=== PATIENT | female | born 1975 | race Two or more races ===

== ENCOUNTER 2017-06-13 04:52 | Inpatient (IN) | payer BC ==
[2017-06-12 11:42] VITALS: BMI 22.2
[~2017-06-13 04:52] MED LIST: ceFAZolin SODIUM 1 GM VIAL IVPB ONE
[2017-06-13] MEDS ORDERED: ceFAZolin 2 GRAM PREMIX BAG IVPB ONE (11:30)
[2017-06-13] MEDS ORDERED: ROPIVACAINE HCL 0.5% 30ML VIAL ONE (12:09)
[2017-06-13] MEDS ORDERED: MIDAZOLAM HCL 2 MG/2 ML SINGLE DOSE VIAL ONE ×2 (12:10)
--- NOTE | 2017-06-13 13:07 | HP ---
Past Medical History - Primary Care Physician PCP:: Aleksander Hadley - Admission Chief Complaint: chronic pelvic pain, menometrorrhagia History of Present Illness: 41 yo f with hx of chronic pelvic pain . menometrorrhagia, dysparunia , multiple abdomainal surgery for ovarian cyst , endometriois . requesting to have hysterectomy, kem discussed History Source: Patient Limitations to Obtaining History: No Limitations - Past Medical History ...: 2 ...Para: 2 - Past Surgical History Past Surgical History: Yes: Appendectomy, , Cystectomy (ovarian cystectomy) Hx Myomectomy: No Hx Transabdominal Cerclage: No - Smoking History Smoking history: Never smoked - Alcohol/Substance Use Hx Alcohol Use: Yes (OCCAS) - Social History Usual Living Arrangement: Yes: With Spouse History of Recent Travel: No Home Medications - Allergies Allergies/Adverse Reactions: Allergies Allergy/AdvReac Type Severity Reaction Status Date / Time No Known Allergies Allergy Verified 06/12/17 11:43 - Home Medications Home Medications: Ambulatory Orders Multivitamin [One Daily] 1 each PO DAILY 06/12/17 Review of Systems - Review of Systems Constitutional: reports: No Symptoms Eyes: reports: No Symptoms HENT: reports: No Symptoms Neck: reports: No Symptoms Cardiovascular: reports: No Symptoms Respiratory: reports: No Symptoms Gastrointestinal: reports: Abdominal Pain, Bloating Genitourinary: reports: Frequency, Pain, Vaginal Bleeding Breasts: reports: No Symptoms Reported Musculoskeletal: reports: Back Pain Integumentary: reports: No Symptoms Neurological: reports: No Symptoms Endocrine: reports: No Symptoms Hematology/Lymphatic: reports: No Symptoms Psychiatric: reports: No Symptoms 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 Signs: Vital Signs Temperature 98.0 F 06/13/17 12:01 Pulse Rate 70 06/13/17 12:01 Respiratory Rate 20 06/13/17 12:01 Blood Pressure 123/75 06/13/17 12:01 O2 Sat by Pulse Oximetry (%) 98 06/13/17 12:01 Constitutional: Yes: Well Nourished, No Distress, Calm Eyes: Yes: WNL, Conjunctiva Clear, EOM Intact HENT: Yes: WNL, Atraumatic, Normocephalic Neck: Yes: WNL, Supple, Trachea Midline Cardiovascular: Yes: WNL, Regular Rate and Rhythm Respiratory: Yes: WNL, Regular, CTA Bilaterally Gastrointestinal: Yes: WNL ...Rectal Exam: Yes: WNL Renal/: Yes: WNL External Genitalia: Yes: Normal Internal Exam Deferred: No Vaginal Exam: Yes: Normal Cervix: Yes: Normal Uterus: Yes: Enlarged, Tender Adnexa: Tender: Left, Right Breast(s): Yes: WNL Musculoskeletal: Yes: WNL Extremities: Yes: WNL Integumentary: Yes: WNL Neurological: Yes: WNL, Alert, Oriented ...Motor Strength: WNL Psychiatric: Yes: WNL, Alert, Oriented Problem List - Problem (1) Chronic pelvic pain in female Code(s): R10.2 - PELVIC AND PERINEAL PAIN; G89.29 - OTHER CHRONIC PAIN (2) Adenomyosis Code(s): N80.0 - ENDOMETRIOSIS OF UTERUS (3) Endometriosis Code(s): N80.9 - ENDOMETRIOSIS, UNSPECIFIED Assessment/Plan abdominal hysterectomy, BSO, rba discussed
[2017-06-13] MEDS ORDERED: SCOPOLAMINE HYDROBROMIDE 1 PATCH PATCH.TD72 ONE (13:10)
[2017-06-13] MEDS ORDERED: ROCURONIUM BROMIDE 50 MG/5 ML VIAL ONE (13:54)
[2017-06-13] MEDS ORDERED: LIDOCAINE HCL/PF 2% SDV 5ML VIAL ONE (13:54)
[2017-06-13] MEDS ORDERED: PROPOFOL 20 ML ONE (13:54)
[2017-06-13] MEDS ORDERED: ceFAZolin SODIUM 1 GM VIAL IVPB ONE (13:55)
[2017-06-13] MEDS ORDERED: ceFAZolin SODIUM 1 GM VIAL ONE (14:12)
[2017-06-13] MEDS ORDERED: DEXAMETHASONE SOD PHOSPHATE 4 MG/1 ML VIAL ONE (14:36)
[2017-06-13] MEDS ORDERED: NEOSTIGMINE METHYLSULFATE 0.5 MG/ML - 10 ML MDV ONE (14:41)
[2017-06-13] MEDS ORDERED: ONDANSETRON 4 MG/2 ML VIAL IVPUSH PRN (16:17)
[2017-06-13] MEDS ORDERED: oxyCODONE HCL 5 MG TABLET PO PRN (16:17)
[2017-06-13] MEDS ORDERED: IBUPROFEN 800 MG/8 ML IJ IVPB PRN ×2 (16:17)
[2017-06-13] MEDS ORDERED: HYDROmorphone *PCA* 6MG/30ML DISP.SYRIN PCA ONE (16:19)
[2017-06-13] MEDS ORDERED: HYDROmorphone *PCA* 10MG/50ML DISP.SYRIN PCA SCH (16:30)
[2017-06-13] MEDS ORDERED: LACTATED RINGERS SOLUTION 1,000 ML IV SCH (16:30)
[2017-06-13] MEDS ORDERED: ONDANSETRON 4 MG/2 ML VIAL ONE (17:15)
[2017-06-13] MEDS: ONDANSETRON 4 MG/2 ML VIAL IVPUSH PRN (17:15)
[2017-06-13] MEDS: ELECTROLYTE-148 SOLN 1,000 ML IV SCH (17:50)
[2017-06-13] MEDS ORDERED: CEFAZOLIN 1 GM PUSH 1 GM/10 ML DISP.SYRIN IVPUSH SCH (18:00)
[2017-06-13] MEDS ORDERED: HYDROmorphone *PCA* 6MG/30ML DISP.SYRIN PCA SCH (22:15)
[2017-06-13] MEDS: CEFAZOLIN 1 GM PUSH 1 GM/10 ML DISP.SYRIN IVPUSH SCH (23:55)
[2017-06-14] MEDS ORDERED: diphenhydrAMINE HCL 25 MG CAPSULE (FP) PO ONE (01:30)
[2017-06-14] MEDS: CEFAZOLIN 1 GM PUSH 1 GM/10 ML DISP.SYRIN IVPUSH SCH ×2 (06:33→13:49)
[2017-06-14] MEDS: ONDANSETRON 4 MG/2 ML VIAL IVPUSH PRN ×2 (06:44→17:02)
[2017-06-14] MEDS: ELECTROLYTE-148 SOLN 1,000 ML IV SCH ×2 (08:25→16:41)
[2017-06-14 08:52] LABS: HEMATOCRIT 31.5 % (32.4-45.2); HEMOGLOBIN 10.4 GM/dL (10.7-15.3); MCH 29.8 pg (25.7-33.7); MCHC 32.9 g/dl (32.0-36.0); MEAN CELL VOLUME 90.6 fl (80-96); MEAN PLT VOLUME 10.3 fl (7.5-11.1); PLATELET COUNT 146 K/MM3 (134-434); RBC 3.48 M/mm3 (3.60-5.2); RDW 13.3 % (11.6-15.6); WHITE BLOOD COUNT 10.6 K/mm3 (4.0-10.0)
[2017-06-14] MEDS ORDERED: SIMETHICONE 80 MG TAB.CHEW (FP) PO PRN (09:27)
[2017-06-14] MEDS ORDERED: BISACODYL 5 MG TABLET.DR (FP) PO PRN (09:28)
[2017-06-14 09:30] LABS: ANION GAP 8 (8-16); BLOOD UREA NITROGEN 7 mg/dL (7-18); CHLORIDE 103 mmol/L (98-107); CO2 27 mmol/L (21-32); CREATININE 0.5 mg/dL (0.55-1.02); GLUCOSE,RANDOM 84 mg/dL (74-106); POTASSIUM 3.8 mmol/L (3.5-5.1); SODIUM 138 mmol/L (136-145)
[2017-06-14] MEDS ORDERED: PANTOPRAZOLE 40 MG TABLET (FP) PO PRN (09:30)
[2017-06-14] MEDS: ENOXAPARIN NA (PORCINE) 40 MG/0.4 ML DISP.SYRIN SQ SCH (10:57)
[2017-06-14 11:57] LABS: CALCIUM 6.9 mg/dL (8.5-10.1)
[2017-06-14] MEDS ORDERED: HYDROmorphone HCL CARPU-JECT 4 MG/1 ML DISP.SYRIN IVPB PRN (12:54)
[2017-06-14] MEDS: oxyCODONE HCL 5 MG TABLET PO PRN ×2 (16:42→21:53)
[2017-06-14] MEDS: CALCIUM 500MG/VIT-D 200 UNITS COMBO TABLET (FP) PO SCH (21:54)
[2017-06-15] MEDS: IBUPROFEN 600 MG TABLET (FP) PO PRN ×2 (02:18→21:01)
[2017-06-15 08:09] LABS: ANION GAP 6 (8-16); BLOOD UREA NITROGEN 6 mg/dL (7-18); CALCIUM 7.9 mg/dL (8.5-10.1); CHLORIDE 102 mmol/L (98-107); CO2 32 mmol/L (21-32); CREATININE 0.4 mg/dL (0.55-1.02); GLUCOSE,RANDOM 94 mg/dL (74-106); SODIUM 140 mmol/L (136-145)
[2017-06-15] MEDS: oxyCODONE HCL 5 MG TABLET PO PRN ×2 (09:42→17:38)
[2017-06-15] MEDS: CALCIUM 500MG/VIT-D 200 UNITS COMBO TABLET (FP) PO SCH ×2 (09:42→21:00)
[2017-06-15] MEDS: ENOXAPARIN NA (PORCINE) 40 MG/0.4 ML DISP.SYRIN SQ SCH (09:43)
--- NOTE | 2017-06-15 12:20 | PN ---
Progress Note (short form) - Note Progress Note: pod 2 c/o of gas pain and low abdominal pain, not passing gas CBC, BMP 06/14/17 07:00 06/15/17 06:45 Last Vital Signs Temp Pulse Resp BP Pulse Ox 98.3 F 79 18 121/72 99 06/15/17 07:45 06/15/17 07:45 06/15/17 07:45 06/15/17 07:45 06/13/17 21:00 abdomen soft, mild distension, no cva , BS present but decreased incision dry, clean no calf tenderness no vaginal bleeding pod 2 mild post op illius plan observe, dulcolax, ambulate if passes gas will d/c home in am Problem List - Problems (1) Chronic pelvic pain in female Code(s): R10.2 - PELVIC AND PERINEAL PAIN; G89.29 - OTHER CHRONIC PAIN (2) Adenomyosis Code(s): N80.0 - ENDOMETRIOSIS OF UTERUS (3) Endometriosis Code(s): N80.9 - ENDOMETRIOSIS, UNSPECIFIED
[2017-06-16] MEDS: ONDANSETRON 4 MG/2 ML VIAL IVPUSH PRN (01:21)
--- NOTE | 2017-06-16 08:53 | PN ---
Progress Note (short form) - Note Progress Note: pod 3 doing well, passing gas , no BM CBC, BMP 06/14/17 07:00 06/15/17 06:45 Last Vital Signs Temp Pulse Resp BP Pulse Ox 98.1 F 73 18 110/57 99 06/16/17 06:00 06/16/17 06:00 06/16/17 06:00 06/16/17 06:00 06/15/17 21:00 abdomen soft , less distension, , BS present, no cva incision dry, clean no calf tenderness impression resolves post op ileus plan d/c home with instuction, follow up office 2 weeks Problem List - Problems (1) Chronic pelvic pain in female Code(s): R10.2 - PELVIC AND PERINEAL PAIN; G89.29 - OTHER CHRONIC PAIN (2) Adenomyosis Code(s): N80.0 - ENDOMETRIOSIS OF UTERUS (3) Endometriosis Code(s): N80.9 - ENDOMETRIOSIS, UNSPECIFIED
--- NOTE | 2017-06-16 08:54 | DS ---
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: Vital Signs Temperature 98.1 F 06/16/17 06:00 Pulse Rate 73 06/16/17 06:00 Respiratory Rate 18 06/16/17 06:00 Blood Pressure 110/57 06/16/17 06:00 O2 Sat by Pulse Oximetry (%) 99 06/15/17 21:00 Constitutional: Yes: Well Nourished, No Distress, Calm Eyes: Yes: WNL, Conjunctiva Clear, EOM Intact HENT: Yes: WNL, Atraumatic, Normocephalic Neck: Yes: WNL, Supple, Trachea Midline Cardiovascular: Yes: WNL, Regular Rate and Rhythm Respiratory: Yes: WNL, Regular, CTA Bilaterally Gastrointestinal: Yes: WNL ...Rectal Exam: Yes: WNL Renal/: Yes: WNL Breast(s): Yes: WNL Musculoskeletal: Yes: WNL Extremities: Yes: WNL Integumentary: Yes: WNL Wound/Incision: Yes: Clean/Dry, Well Approximated, Sutures Intact Neurological: Yes: WNL, Alert, Oriented ...Motor Strength: WNL Psychiatric: Yes: WNL, Alert, Oriented Labs: CBC, BMP 06/14/17 07:00 06/15/17 06:45 Discharge Summary Reason For Visit: HYDROSALPINX Current Active Problems Adenomyosis (Acute) Chronic pelvic pain in female (Acute) Endometriosis (Acute) Procedures: Principal: jaki , bso, lysis of pelvic adhesions Condition: Good - Instructions Diet, Activity, Other Instructions: regular diet, follow up office 2 weeks if pain, fever , call MD Referrals: Aleksander Hadley MD [Staff Physician] - Disposition: HOME - Home Medications Comprehensive Discharge Medication List: Ambulatory Orders Multivitamin [One Daily] 1 each PO DAILY 06/12/17 Ibuprofen [Motrin -] 600 mg PO QID #28 tablet 06/15/17 Oxycodone HCl/Acetaminophen [Percocet 5-325 mg Tablet] 1 - 2 tab PO Q4H PRN #20 tablet MDD 4 06/16/17
[2017-06-16] MEDS: ENOXAPARIN NA (PORCINE) 40 MG/0.4 ML DISP.SYRIN SQ SCH (11:17)
[2017-06-16] MEDS: CALCIUM 500MG/VIT-D 200 UNITS COMBO TABLET (FP) PO SCH (11:18)
[2017-06-16 11:55] VITALS: BP 108/60; PULSE 72; TEMP 98.2
--- NOTE | 2017-06-16 19:20 | OP ---
DATE OF OPERATION: 06/13/2017 PREOPERATIVE DIAGNOSES: Chronic pelvic pain, endometriosis. POSTOPERATIVE DIAGNOSES: Chronic pelvic pain, endometriosis, and pelvic adhesions. SURGEON: Aleksander Hadley MD SALES REPRESENTATIVE RAW FIBERS: Sherif Hutchinson MD PROCEDURE: Total abdominal hysterectomy, bilateral salpingo-oophorectomy with lysis of pelvic adhesions. ANESTHESIA: General. ANESTHESIOLOGIST: Jyoti Bingham MD ESTIMATED BLOOD LOSS: 100 mL DESCRIPTION OF PROCEDURE: Patient was taken to the operating room. Under adequate general anesthesia in dorsal supine position, a Pfannenstiel abdominal skin incision was made over the previous incision. Abdominal wall was cut layer by layer until peritoneum was exposed and incised. Upon entering the abdominal cavity, upper abdomen was checked, was normal. There were multiple pelvic adhesions. The uterus was adherent to the anterior abdominal wall and the fascia and both cornual regions of the uterus. The bladder was adherent to the uterus and covering the fundus of the uterus. Both ovaries were stuck to both pelvic sidewalls and to cul-de-sac area. There was evidence of multiple endometriosis implants. Then, the cornual regions of the uterus which were adherent to the rectus muscle, they were lysed meticulously with Metzenbaum scissors and cautery, and hemostasis was established. The bladder was adherent to the fundus of the uterus. These adhesions were lysed meticulously with Metzenbaum scissors, and bladder was released from the uterus and pushed down. Then, both round ligaments were identified, clamped with the LigaSure cautery, cauterized, and cut, and then, the anterior leaf of broad ligament was opened and bladder was further pushed down. The ovaries were adherent bilaterally to the pelvic sidewalls and cul-de-sac. The ovaries' adhesions were lysed with Metzenbaum scissors and released. There was evidence of multiple endometriotic implants on both ovaries and the uterosacral ligaments. After lysing the ovaries, then a hole was made in the broad ligament, and then, the infundibulopelvic ligament was identified, clamped bilaterally, cut, and the clamp replaced with first 0 Vicryl ties and then with 0 Vicryl suture. At this time, bladder was further pushed down. Uterine artery was identified, clamped bilaterally, cut, and the clamp replaced with 0 Vicryl suture bilaterally. Paracervical area was clamped with Eugenia clamp, cut, and the clamp replaced with 0 Vicryl suture bilaterally until the cervicovaginal junction was reached. At this time, the vaginal angles were grasped with Eugenia clamp, cut, and the clamp replaced with 0 Vicryl suture bilaterally. Then, the specimens removed below the cervix. The vaginal cuff was closed with interrupted suture of 0 Vicryl. Pelvic cavity several times irrigated. No active bleeding was seen. Then, all the lap pads, sponge, and instrument counts were correct. Peritoneum was closed with 0 Vicryl continuous suture, muscles were brought together with interrupted suture of 0 Vicryl, the fascia was closed with 0 Vicryl continuous suture, subcutaneous fat with interrupted suture of 3-0 Vicryl, and the skin was closed with 3-0 Vicryl subcuticular continuous suture. Patient tolerated the procedure well, left the OR in good condition. Roderick [id number]
--- NOTE | 2017-06-20 09:47 | PATH ---
Surgical Pathology Report Patient Name: MATT FOOTE [facility]. Rec. #: [id number] /Age/Gender: 1975 (Age: 41) / F Account: [id number] Location: [facility] MED/SURG Taken: 06/13/2017 Received: 06/16/2017 Reported: 06/20/2017 Physicians: Aleksander Hadley M.D. Specimen(s) Received A: OMENTUM ADHESION B: UTERUS, CERVIX, BILATERAL FALLOPIAN TUBES AND BILATERAL OVARIES Clinical History Pelvic pain, endometriosis, menorrhagia Final Diagnosis A. OMENTUM, ADHESIONS, EXCISION: OMENTAL ADIPOSE TISSUE WITH DENSE FIBROUS ADHESIONS. B. UTERUS, CERVIX, BILATERAL FALLOPIAN TUBES AND OVARIES, TOTAL ABDOMINAL HYSTERECTOMY WITH BILATERAL SALPINGO-OOPHORECTOMY: SECRETORY ENDOMETRIUM. UNREMARKABLE MYOMETRIUM. DENSE SEROSAL ADHESIONS. LEFT OVARY WITH SMALL ENDOMETRIOTIC CYST. LEFT FALLOPIAN TUBE WITH DENSE ADHESIONS AND ENDOMETRIOSIS. RIGHT OVARY WITH FOLLICULAR CYSTS AND HEMORRHAGIC CORPUS LUTEUM CYSTS. RIGHT FALLOPIAN TUBE WITH DENSE ADHESIONS. Electronically Signed Mimi Moralez M.D. Gross Description A. Received in formalin labeled "omentum adhesion," is an 8.3 x 5.8 x 0.7 cm portion of yellow, lobulated adipose tissue, consistent with a portion of omentum. Rubber Compounder Supervisor sections are submitted in 3 cassettes. B. Received in formalin labeled "uterus, cervix, bilateral fallopian tubes and bilateral ovaries," is a 129 g uterus with an attached cervix and bilateral attached adnexa. The specimen measures 10.5 cm from superior to inferior, 5.5 cm from left to right and 4.7 cm from anterior to posterior. The serosa is dove-toscano with abundant adhesions. The attached cervix measures 3.7 cm in length and averages 3 cm in diameter. The ectocervix is dove, smooth and glistening. The endocervix is unremarkable. The endometrial cavity measures 4 cm in length and 2.1 cm from cornu to cornu. The endometrium is dove-pink and averages 0.2 cm in thickness. The myometrium is dove and trabeculated, averaging 2.2 cm in thickness. No intramural nodules are identified. The left fimbriated fallopian tube measures 4.5 cm in length. The outer surface is chambers purple with dense adhesions. Sectioning of the fallopian tube reveals an unremarkable lumen. There is a 2.5 x 1.3 x 1.4 cm mass of adhesions surrounding the fallopian tube, possibly containing ovarian parenchyma. No definite normal ovarian parenchyma is identified. The right fimbriated fallopian tube measures 5 cm in length. The outer surface is chambers purple with dense adhesions. Sectioning reveals an unremarkable lumen. The right ovary measures 5.0 x 2.5 x 2.5 cm. The outer surface is dove-toscano with adhesions. Sectioning reveals multiple hemorrhagic corpora lutea measuring up to 2.0 cm in greatest dimension. There are additional smaller serous cysts identified, measuring up to 0.8 cm in greatest dimension. Rubber Compounder Supervisor sections are submitted in 17 cassettes as follows: 1-anterior cervix; 2-posterior cervix; 8-7-qbaeooik endomyometrium; 5-4-bbmhbwffq endomyometrium; 7-strips of serosal adhesions; 8-left fallopian tube fimbria; 9-cross sections of left fallopian tube; 13-03-jvyhwxe adhesions surrounding left fallopian tube possibly containing ovarian parenchyma; 12-right fallopian tube fimbria; 13-cross sections of right fallopian tube; 14-17-right ovary; 50-14-ulatwrhat of tissue surrounding left fallopian tube. 06/16/2017 [facility]06/16/[facility]
== END 2017-06-16 13:50 | disposition home or self-care (01) | DRG 743 ==
LOC: JSAMEDAYSX 04:52 → EDSTATUS 13:30 → J8W 18:30
PROVIDERS: ADMIT Obstetrics & Gynecology; ATTEND Obstetrics & Gynecology
PROC: 0DNW0ZZ Release Peritoneum, Open Approach (ICD-10-PCS; 2017-06-13)
PROC: 0UT70ZZ Resection of Bilateral Fallopian Tubes, Open Approach (ICD-10-PCS; 2017-06-13)
PROC: 0UT20ZZ Resection of Bilateral Ovaries, Open Approach (ICD-10-PCS; 2017-06-13)
PROC: 0UT90ZZ Resection of Uterus, Open Approach (ICD-10-PCS; principal; 2017-06-13 13:30)
DX: N80.0 Endometriosis of uterus (principal); R10.2 Pelvic and perineal pain; N92.1 Excessive and frequent menstruation with irregular cycle; N73.6 Female pelvic peritoneal adhesions (postinfective); N83.01 Follicular cyst of right ovary
CPT/HCPCS: 36415; 80048; 84703; 85027; 86850; 86900; 86901; 88305-TC; 88307-TC; 94760; J1170

== ENCOUNTER 2017-09-18 12:03 | Observation (INO) | payer BC ==
--- NOTE | 2017-09-18 12:11 | PDOC ---
History of Present Illness - General Stated Complaint: CHEST TIGHTNESS Time Seen by Provider: 09/18/17 12:10 - History of Present Illness Initial Comments: 41 year old previously healthy female with PMH Of recent hysterectomy and oophorectomy (currently on HRT) presenting with left arm numbness/tingling/ heaviness and chest pressure with general fatigue. States that these symptoms were sudden onset at 11:00 AM. Her symptoms co-presented with some nausea with right sided mild headache and she denies dysarthria, overt weakness, visual complaints or other symptoms. Her chest pressure is central non-radiating, non- exertional, and non-pleuritic. Her stroke scale was a 2 on presentation ( significant for left upper quadrant peripheral visual field deficit and sharp sensory deeficit in parts of her left arm and hand). Denies fevers, chills, vomiting, diarrhea, or other symptoms. HER PCP is Roberto Carlos Billingsley. 09/18/17 13:08 Past History - Past Medical History Allergies/Adverse Reactions: Allergies Allergy/AdvReac Type Severity Reaction Status Date / Time No Known Allergies Allergy Verified 09/18/17 13:29 Home Medications: Ambulatory Orders Estradiol 25 mg PO DAILY 09/18/17 Anemia: No Asthma: No Cancer: No Cardiac Disorders: No CVA: No COPD: No CHF: No Dementia: No Diabetes: No GI Disorders: No Disorders: No HTN: No Hypercholesterolemia: No Liver Disease: No Seizures: No Thyroid Disease: No - Surgical History Abdominal Surgery: Yes Appendectomy: Yes - Immunization History Immunization Up to Date: Yes - Suicide/Smoking/Psychosocial Hx Smoking History: Never smoked Hx Alcohol Use: No Drug/Substance Use Hx: No Substance Use Type: None Hx Substance Use Treatment: No Review of Systems - Review of Systems Constitutional: Yes: Weakness. No: Chills, Diaphoresis, Fever HEENTM: No: Blurred Vision, Tearing, Recent change in vision Respiratory: No: Cough, Orthopnea, Shortness of Breath, SOB with Exertion Cardiac (ROS): Yes: Chest Pain. No: Edema, Irregular Heart Rate ABD/GI: Yes: Nausea. No: Diarrhea, Vomiting : No: Burning, Dysuria, Discharge Integumentary: No: Lesions, Lumps, Pallor Neurological: Yes: Headache, Numbness, Paresthesia, Tingling, Weakness. No: Pre -Existing Deficit, Unsteady Gait, Ataxia, Dizziness Psychiatric: No: Anxiety, Depression *Physical Exam - Physical Exam General Appearance: Yes: Nourished, Appropriately Dressed. No: Apparent Distress HEENT: positive: EOMI, STU, Normal ENT Inspection, Normal Voice. negative: Symmetrical Neck: positive: Trachea midline, Normal Thyroid, Supple. negative: Tender, Rigid Respiratory/Chest: positive: Lungs Clear, Normal Breath Sounds. negative: Chest Tender, Respiratory Distress, Accessory Muscle Use Cardiovascular: positive: Regular Rhythm, Regular Rate Gastrointestinal/Abdominal: positive: Normal Bowel Sounds, Flat, Soft. negative : Tender Lymphatic: positive: Adenopathy. negative: Tenderness Musculoskeletal: positive: Normal Inspection. negative: CVA Tenderness Extremity: positive: Normal Capillary Refill, Normal Inspection, Normal Range of Motion, Pelvis Stable. negative: Tender Integumentary: positive: Normal Color, Dry, Warm Neurologic: positive: dramatic coach II-XII NML intact, Fully Oriented, Alert, Normal Mood/ Affect, Motor Strength 5/5, Sensory Deficit (left arm sensory deficit in C 6 distribution) ED Treatment Course - LABORATORY CBC & Chemistry Diagram: 09/18/17 12:39 09/18/17 12:39 Medical Decision Making - Medical Decision Making CT head negative and all labs WNL with exception of leuk esterase + UTI on her UA. Will admit under Sheila with echo/ MRI pending and Tiffany following. EKG unrevealing with old incomplete branch block. Aspirin, atorvastatin, and ceftriaxone given. 09/18/17 14:38 *DC/Admit/Observation/Transfer Diagnosis at time of Disposition: Stroke Qualifiers: CVA mechanism: unspecified Qualified Code(s): I63.9 - Cerebral infarction, unspecified - Discharge Dispostion Condition at time of disposition: Stable Decision to Admit order: Yes - Referrals Referrals: Roberto Carlos Billingsley MD [Primary Care Provider] - - Patient Instructions - Post Discharge Activity
[2017-09-18] MEDS ORDERED: ASPIRIN 81 MG CHEWABLE TABLETS PO ONE (12:56)
[2017-09-18] MEDS ORDERED: ATORVASTATIN CA 80 MG TABLET (FP) PO ONE (12:56)
[2017-09-18] MEDS ORDERED: ASPIRIN 325 MG TABLET ONE (12:58)
[2017-09-18] MEDS ORDERED: ATORVASTATIN CA 80 MG TABLET (FP) ONE (12:59)
[2017-09-18 13:01] LABS: BASO % 0.7 % (0-2.0); EOS % 1.4 % (0-4.5); HEMATOCRIT 36.5 % (32.4-45.2); LYMPH % 35.7 % (8-40); MCH 28.5 pg (25.7-33.7); MCHC 32.9 g/dl (32.0-36.0); MEAN CELL VOLUME 86.8 fl (80-96); MEAN PLT VOLUME 10.1 fl (7.5-11.1); MONO % 8.4 % (3.8-10.2); NEUT % 53.8 % (42.8-82.8); PLATELET COUNT 150 K/MM3 (134-434); RDW 14.6 % (11.6-15.6); WHITE BLOOD COUNT 6.2 K/mm3 (4.0-10.0)
[2017-09-18 13:18] LABS: ALBUMIN 3.6 g/dl (3.4-5.0); ANION GAP 4 (8-16); BILIRUBIN,TOTAL 0.3 mg/dL (0.2-1.0); BLOOD UREA NITROGEN 13 mg/dL (7-18); CALCIUM 8.7 mg/dL (8.5-10.1); CHLORIDE 104 mmol/L (98-107); CHOLESTEROL 209 mg/dL (50-200); CO2 32 mmol/L (21-32); CREATININE 0.6 mg/dL (0.55-1.02); GLUCOSE,RANDOM 87 mg/dL (74-106); POTASSIUM 4.9 mmol/L (3.5-5.1); SGOT/AST 30 U/L (15-37); SGPT/ALT 23 U/L (12-78); SODIUM 140 mmol/L (136-145); TRIGLYCERIDES 134 mg/dL (35-160)
[2017-09-18 13:19] LABS: ALK PHOS 63 U/L (45-117); HDL CHOLESTEROL 99 mg/dL (40-60)
--- NOTE | 2017-09-18 13:27 | PDOC ---
Attending Attestation - Resident Resident Name: Manish Valdes - ED Attending Attestation I have performed the following: I have examined & evaluated the patient, The case was reviewed & discussed with the resident, I agree w/resident's findings & plan - HPI HPI: 09/18/17 13:21 41y/o F h/o jaki/bso on estrogen p/w acute onset at 11am of generalized weakness , chest pressure, and L arm heaviness/numbness. no LOC, no vision/voice deficit or focal weakness/paralysis. no sob/palpitations. no h/o migraines. - Physicial Exam PE: 09/18/17 13:27 vss, afebrile alert and well appearing seated up in stretcher no facial asymmetry or paralysis. speech clear, neck supple s1s2 rrr, ctab, abd benign 5/5 motor x4, no drift, ? sensory decreased LUE, otherwise nvi - Critical Care Time Total Critical Care Time: 40 Critical Care Statement: The care of this patient involved high complexity decision making to prevent further life threatening deterioration of the patient 's condition and/or to evaluate & treat vital organ system(s) failure or risk of failure. - Medical Decision Making 09/18/17 13:28 41y/o F with acute onset generalized weakness, ? L arm paresthesias, at 11am. code chambers activated 2/2 neuro sxs, ? hypercoagulable on estrogen, lower suspicion for cardiac etiology. stroke protocol initiated ct head without acute pathology. Discussed with Dr. Allen, no indication for tpa and will medically optimize labs, ua, ekg, cxr admission 09/18/17 14:00 labs nwl, UA notable for UTI. Will send cx, treat with abx. Heart Score/ECG Review #1 ECG reviewed & interpreted by me at: 12:16 General ECG Interpretation: Sinus Rhythm, Normal Rate (57), Normal Intervals ( IRBBB,), No acute ischemic changes
[2017-09-18 13:32] LABS: INR 0.97 (0.82-1.09)
[2017-09-18 13:34] LABS: URINE APPEARANCE SLCLOUDY; URINE BILIRUBIN NEGATIVE (<2.0 mg/dL); URINE COLOR LTYELLOW; URINE GLUCOSE (UA) NEGATIVE (NEGATIVE); URINE KETONE NEGATIVE (NEGATIVE); URINE NITRITE NEGATIVE (NEGATIVE); URINE PROTEIN NEGATIVE (NEGATIVE); URINE UROBILINOGEN NEGATIVE mg/dL (0.2-1.0)
--- NOTE | 2017-09-18 13:34 | PDOC ---
NIH Stroke Scale - Last Known Well Date/Time & Onset Date Last Known Well: 09/18/17 Time Last Known Well: 10:59 - Initial Evaluation Level of consciousness: Alert Ask patient the month and their age: Answers both correctly Ask patient to open & close eyes; make fist and let go: Obeys both correctly Best gaze (horizontal eye movement): Normal Visual field testing: Partial hemianopia Facial paresis (Show teeth/raise eyebrows/close eyes tight): Normal symmetrical movement Motor Function: Left Arm: Normal Motor Function: Right Arm: Normal (extends arm 90 (or 45) degrees for 10 seconds without drift Motor Function: Left Leg: Normal (extends leg 30 degrees for 5 seconds without drift) Motor Function: Right Leg: Normal (extends leg 30 degrees for 5 seconds without drift) Limb Ataxia: No ataxia Sensory(Use pinprick test arms,legs,trunk,face/side to side): Mild to moderate decrease in sensation Best language (Describe picture, name items, read sentences): No Aphasia Dysarthria (read several words): Normal articulation Extinction and Inattention: No abnormality (partial sensory deficit of left forearm to sharp sensation with left upper quadrant possible visual field deficit.) - Total Score NIH Stroke Scale Score: 2
[2017-09-18 13:36] LABS: URINE LEUK ESTERASE 3+ (NEGATIVE)
[2017-09-18 13:49] LABS: EPI CELLS RARE /HPF (FEW); URINE BACTERIA RARE /hpf (NONE SEEN)
[2017-09-18] MEDS ORDERED: MAG HYDROX/AL HYDROX/SIMETH 30 ML UNIT-DOSE CUP PO ONE (13:57)
[2017-09-18] MEDS ORDERED: RANITIDINE HCL 150 MG TABLET (FP) PO ONE (13:57)
[2017-09-18] MEDS ORDERED: MAG HYDROX/AL HYDROX/SIMETH 30 ML UNIT-DOSE CUP ONE (13:59)
[2017-09-18] MEDS ORDERED: RANITIDINE HCL 150 MG TABLET (FP) ONE (13:59)
[2017-09-18] MEDS ORDERED: CEFTRIAXONE 1,000 MG in DEXTROSE 5%-WATER - 50 ML IVPB ONE (14:35)
[2017-09-18] MEDS ORDERED: CEFTRIAXONE 1 GM/50 ML BAG ONE (14:54)
[2017-09-18] MEDS: SODIUM CHLORIDE 1,000 ML IV SCH (14:58)
[2017-09-18] MEDS ORDERED: ACETAMINOPHEN 1000 MG/100 ML VIAL (NON FORMULARY) IVPB ONE (16:57)
[2017-09-18] MEDS ORDERED: ACETAMINOPHEN INJECTION 100 ML IVPB ONE (16:58)
[2017-09-18 20:41] VITALS: BMI 20.9
[2017-09-18] MEDS: ESTRADIOL PO SCH (22:31)
[2017-09-19] MEDS: ACETAMINOPHEN 325 MG TABLET (FP) PO PRN (01:00)
[2017-09-19] MEDS: BENZOCAINE/MENTH/CETYLPYRD CL 1 EACH LOZENGE MM PRN ×3 (01:15→23:33)
--- NOTE | 2017-09-19 07:20 | HP ---
Admitting History and Physical - Admission History of Present Illness: 41y/o F h/o jaki/bso on estrogen p/w acute onset at 11am of generalized weakness , chest pressure, and L arm heaviness/numbness. no LOC, no vision/voice deficit or focal weakness/paralysis. no sob/palpitations. no h/o migraines. - Past Medical History Cardiovascular: Yes: Hyperlipdemia. No: CAD, HTN, DE Pulmonary: No: Asthma, COPD Gastrointestinal: No: Cancer, GI Bleed ...LMP: 02/03/17 ...: No - Past Surgical History Past Surgical History: Yes: Appendectomy, , Cystectomy (ovarian cystectomy), Hysterectomy (05/2017) - Smoking History Smoking history: Current every day smoker Have you smoked in the past 12 months: Yes Aproximately how many cigarettes per day: 1 - Alcohol/Substance Use Hx Alcohol Use: No - Social History History of Recent Travel: No Home Medications - Allergies Allergies/Adverse Reactions: Allergies Allergy/AdvReac Type Severity Reaction Status Date / Time No Known Allergies Allergy Verified 09/18/17 13:29 - Home Medications Home Medications: Ambulatory Orders Estradiol 0.5 mg PO DAILY 09/18/17 Review of Systems - Review of Systems Cardiovascular: reports: Chest Pain, Shortness of Breath. denies: Edema Respiratory: reports: SOB on Exertion Neurological: reports: Headache, Numbness (left arm) Physical Examination Vital Signs: Vital Signs Temperature 98.0 F 09/19/17 05:00 Pulse Rate 65 09/19/17 05:00 Respiratory Rate 20 09/19/17 05:00 Blood Pressure 101/57 09/19/17 05:00 O2 Sat by Pulse Oximetry (%) 95 09/19/17 00:41 Cardiovascular: Yes: Regular Rate and Rhythm Respiratory: Yes: Regular, CTA Bilaterally Gastrointestinal: Yes: Normal Bowel Sounds, Soft. No: Tenderness Edema: No Neurological: Yes: Alert, Oriented, Cran Nerves II-XII Intact. No: Facial Droop , Weakness Labs: CBC, BMP 09/18/17 12:39 09/18/17 12:39 Problem List - Problems (1) TIA (transient ischemic attack) Assessment/Plan: -Numbness resolved -pt on estrogen -mri noted--r/o demylenating ds--neuro -carotid =tele -on statin and asa Code(s): G45.9 - TRANSIENT CEREBRAL ISCHEMIC ATTACK, UNSPECIFIED (2) Chest pain Assessment/Plan: -Improved but still with [id number] -cardio cta to r/o pe--recent surgery and on estrogen -tele Code(s): R07.9 - CHEST PAIN, UNSPECIFIED
[2017-09-19 08:26] LABS: BASO % 0.9 % (0-2.0); EOS % 1.7 % (0-4.5); HEMATOCRIT 35.9 % (32.4-45.2); HEMOGLOBIN 11.7 GM/dL (10.7-15.3); LYMPH % 45.4 % (8-40); MCH 28.4 pg (25.7-33.7); MCHC 32.7 g/dl (32.0-36.0); MEAN CELL VOLUME 86.9 fl (80-96); MEAN PLT VOLUME 10.1 fl (7.5-11.1); MONO % 8.8 % (3.8-10.2); NEUT % 43.2 % (42.8-82.8); PLATELET COUNT 143 K/MM3 (134-434); RBC 4.13 M/mm3 (3.60-5.2); RDW 14.8 % (11.6-15.6); WHITE BLOOD COUNT 5.4 K/mm3 (4.0-10.0)
--- NOTE | 2017-09-19 08:32 | CON.CARD ---
Consult Consult Specialty:: Cardiology Referred by:: Dr. Mars Reason for Consultation:: Chest pain, L arm numbness, headache - History of Present Illness Chief Complaint: L arm numbness, chest pain, headache History of Present Illness: 41 year old woman h/o hysterectomy and BSO 05/2017 on HRT otherwise no sig pmh admitted with acute onset L arm tingling and numbness, L sternal chest pain, fatigue, headache and nausea that occurred while at work yesterday. Pt seen and examined today in nad. states that her chest pain is not currently present but is reproducible when she pushes on her chest. States that she still has L arm/hand numbness and weakness and still has a headache. Denies having chest pain in the past. denies sob. no palpitations. no pnd, orthopnea, or LE edema. no lightheadedness, dizziness, syncope, or near syncope. Noted in ER to have a visual field deficit and sensory deficit of L hand and arm. - History Source History Provided By: Patient, Medical Record Limitations to Obtaining History: No Limitations - Past Medical History Cardio/Vascular: Yes: Hyperlipdemia. No: CAD, HTN, [place] Pulmonary: No: Asthma, COPD Gastrointestinal: No: Cancer, GI Bleed ...LMP: 02/03/17 ...: No - Past Surgical History Past Surgical History: Yes: Appendectomy, , Cystectomy (ovarian cystectomy), Hysterectomy (05/2017) - Alcohol/Substance Use Hx Alcohol Use: No - Smoking History Smoking history: Current every day smoker Have you smoked in the past 12 months: Yes Aproximately how many cigarettes per day: 1 - Social History ADL: Independent History of Recent Travel: No Home Medications - Allergies Allergies/Adverse Reactions: Allergies Allergy/AdvReac Type Severity Reaction Status Date / Time No Known Allergies Allergy Verified 09/18/17 13:29 - Home Medications Home Medications: Ambulatory Orders Estradiol 0.5 mg PO DAILY 09/18/17 Family Disease History - Family Disease History Family History: Denies Review of Systems - Review of Systems Constitutional: reports: Weakness. denies: No Symptoms, Chills, Diaphoresis, Fever, Lethargy, Loss of Appetite, Malaise, Night Sweats, Unintentional Wgt. Loss, Other Eyes: denies: No Symptoms, Blind Spots, Blurred Vision, Double Vision, Eye Pain , Floaters, Photophobia, Recent Change in Vision, Other HENT: denies: No Symptoms, Difficult Swallowing, Ear Discharge, Ear Pain, Epistaxis, Gingival Bleeding, Hearing Loss, Mouth Swelling, Nasal Congestion, Ocular Prosthesis, Throat Pain, Toothache, Ringing in Ears, Other Neck: denies: No Symptoms, Decreased ROM, Lumps, Pain on Movement, Stiffness, Swollen Glands, Tenderness, Other Cardiovascular: reports: Chest Pain. denies: No Symptoms, Edema, Palpitations, Shortness of Breath, Other Respiratory: denies: No Symptoms, Cough, Exercise Intolerance, Hemoptysis, Orthopnea, PND, Snoring, SOB, SOB on Exertion, Wheezing, Other Gastrointestinal: reports: Nausea. denies: No Symptoms, Abdominal Pain, Bloating, Constipation, Diarrhea, Dysphagia, Indigestion, Melena, Rectal Bleeding, Vomiting, Vomiting Blood, Other Genitourinary: denies: No Symptoms, Burning, Discharge, Dysuria, Flank Pain, Frequency, Hematuria, Incontinence, Lesions, Menses, Pain, Testicular Mass, Testicular Pain, Testicular Swelling, Urgency, Vaginal Bleeding, Other Breasts: denies: No Symptoms Reported, See HPI, Breast Implants, Discharge from Nipple, Lumps, Pain, Skin Changes, Other Musculoskeletal: reports: Muscle Weakness. denies: No Symptoms, Back Pain, Crepitus, Decreased ROM, Extremity Pain, Joint Pain, Joint Swelling, Muscle Pain , Muscle Cramps, Other Integumentary: denies: No Symptoms, Blister, Bruising, Change in Color, Eczema, Erythema, Incision, Lesions, Lump, Pallor, Pruritis, Rash, Wound, Other Neurological: reports: Headache, Numbness, Weakness. denies: No Symptoms, Change in LOC, Change in Speech, Confusion, Dizziness, Incoordination, Parasthesia, Pre-Existing Deficit, Seizure, Syncope, Tremors, Unsteady Gait, Other Endocrine: denies: No Symptoms, Excessive Sweating, Flushing, Increased Hunger, Increased Thirst, Intolerance to Cold, Intolerance to Heat, Unexplained Weight Gain, Unexplained Weight Loss, Other Hematology/Lymphatic: denies: No Symptoms, Easily Bruised, Excessive Bleeding, Swollen Glands, Other Psychiatric: denies: No Symptoms, Altered Sleep Pattern, Anxiety, Depression, Hallucinations, Panic, Paranoia, Suicidal, Other - Risk Factors Known Risk Factors: Yes: Hypercholesterolemia, Smoking Vital Signs: Vital Signs Temperature 98.0 F 09/19/17 05:00 Pulse Rate 65 09/19/17 05:00 Respiratory Rate 20 09/19/17 05:00 Blood Pressure 101/57 09/19/17 05:00 O2 Sat by Pulse Oximetry (%) 95 09/19/17 00:41 Constitutional: Yes: Well Nourished, No Distress, Calm Eyes: Yes: WNL, Conjunctiva Clear, EOM Intact, PERRL HENT: Yes: WNL, Atraumatic, Normocephalic Neck: Yes: WNL, Supple, Trachea Midline Respiratory: Yes: WNL, Regular, CTA Bilaterally. No: Rales, Rhonchi, Wheezes Gastrointestinal: Yes: WNL, Normal Bowel Sounds, Soft. No: Distention, Tenderness Renal/: Yes: WNL Cardiovascular: Yes: WNL, Regular Rate and Rhythm, Other (Chest pain reproducible on palpation of area L lower sternum). No: Bradycardia, Tachycardia, Pulse Irregular, Gallop, Rub, Varicosities JVD: No Carotid Bruit: No PMI: Non-Displaced Heart Sounds: Yes: S1, S2. No: Split S2, S3, S4, Clicks, Gallop, Rub, Bruit Murmur: No: Systolic Murmur, Diastolic Murmur Musculoskeletal: Yes: WNL Extremities: Yes: WNL Edema: No Peripheral Pulses WNL: Yes Peripheral Pulses: 2+ Left Doralis Pedis, 2+ Right Dorsalis Pedis Integumentary: Yes: WNL Neurological: Yes: WNL, Alert, Oriented ...Motor Strength: WNL Psychiatric: Yes: WNL, Alert, Oriented - Other Data Labs, Other Data: CBC, BMP 09/19/17 08:00 09/18/17 12:39 INR, PTT INR 0.97 (0.82-1.09) 09/18/17 12:39 Troponin, BNP 09/18/17 12:39 Troponin I < 0.02 Troponin, BNP 09/18/17 12:39 Troponin I < 0.02 EKG-NSR 57bpm, poor R progression, incomplete RBBB, nonspecific ST abnl Echo: Report Reviewed Imaging - Results Chest X-ray: Report Reviewed, Image Reviewed EKG: Report Reviewed, Image Reviewed Other: Report Reviewed, Image Reviewed (tele-nsr, artifact, no significant events recorded) Assessment/Plan 41 year old woman h/o hysterectomy and BSO 05/2017 on HRT otherwise no sig pmh admitted with acute onset L arm tingling and numbness, L sternal chest pain, fatigue, headache and nausea that occurred while at work yesterday. Pt seen and examined today in nad. states that her chest pain is not currently present but is reproducible when she pushes on her chest. States that she still has L arm/hand numbness and weakness and still has a headache. Denies having chest pain in the past. denies sob. no palpitations. no pnd, orthopnea, or LE edema. no lightheadedness, dizziness, syncope, or near syncope. Noted in ER to have a visual field deficit and sensory deficit of L hand and arm. Chest pain-atypical, unlikely ACS, reproducible on exam -most likely non-cardiac in origin -cardiac enzymes wnl -no sig abnl on EKG -no arrhythmias on tele -ECHO today 09/19/17 showed normal LV systolic function, mild MR, mild TR, trivial pericardial effusion -pt is ordered for a CTA chest to rule out PE given history of HRT and smoking, fup results -stress test can be performed as outpatient L arm numbness and weakness/headache -Neurology to evaluate -MRI brain was done, read as no acute infarct -pt on ASA and statin -if felt that this is a CVA or TIA can cont tele monitoring to evaluate for occult arrhythmia or if discharged can arrange outpatient extended event monitor -if not felt to be TIA or CVA can dc tele
--- NOTE | 2017-09-19 10:39 | EKG ---
Test Reason : Blood Pressure : / mmHG Vent. Rate : 057 BPM Atrial Rate : 057 BPM P-R Int : 120 ms QRS Dur : 102 ms QT Int : 466 ms P-R-T Axes : 025 022 036 degrees QTc Int : 453 ms SINUS BRADYCARDIA NONSPECIFIC ST ABNORMALITY INCOMPLETE RIGHT BUNDLE BRANCH BLOCK Confirmed by LOREN JANE MD ([id number]) on 09/19/2017 10:39:07 AM Referred By: Confirmed By:LOREN JANE MD
--- NOTE | 2017-09-19 11:03 | CON.NEURO ---
Consult - Past Medical History Cardio/Vascular: Yes: Hyperlipdemia. No: CAD, HTN, [place] Pulmonary: No: Asthma, COPD Gastrointestinal: No: Cancer, GI Bleed ...LMP: 02/03/17 ...: No - Past Surgical History Past Surgical History: Yes: Appendectomy, , Cystectomy (ovarian cystectomy), Hysterectomy (05/2017) - Alcohol/Substance Use Hx Alcohol Use: No - Smoking History Smoking history: Current every day smoker Have you smoked in the past 12 months: Yes Aproximately how many cigarettes per day: 1 - Social History ADL: Independent History of Recent Travel: No Home Medications - Allergies Allergies/Adverse Reactions: Allergies Allergy/AdvReac Type Severity Reaction Status Date / Time No Known Allergies Allergy Verified 09/18/17 13:29 - Home Medications Home Medications: Ambulatory Orders Estradiol 0.5 mg PO DAILY 09/18/17 Physical Exam-Neuro Vital Signs: Vital Signs Temperature 98.0 F 09/19/17 05:00 Pulse Rate 65 09/19/17 05:00 Respiratory Rate 20 09/19/17 05:00 Blood Pressure 101/57 09/19/17 05:00 O2 Sat by Pulse Oximetry (%) 95 09/19/17 00:41 Labs: CBC, BMP 09/19/17 08:00 09/18/17 12:39 INR, PTT INR 0.97 (0.82-1.09) 09/18/17 12:39 Assessment/Plan cc left side numbness HPI 41 year old female history of Hystrectomy and on Hormonal replacement therapy, she has these symptoms on left sided and which seems to be resolved. She has right frontal lobe small <1 cm lesion in white matter disease. She did also complain of headhace. Patient denies any motor weakness, speech difficulty. She deneis headhace. Patient denies any other focal neurological symptoms. She denies any prior medical problem before. Her carotid ultrasound was normal. She denies any cad. she denies history of smoking, excessive alcohol use or drug abuse. PMH as above. PSH Appendectomy, , Cystectomy (ovarian cystectomy), Hysterectomy (2017) No Medication except hormonal pills SH,ROS, FH Reviewed in chart NKDA Neurological Examination Alert oriented x 3, speech is normal, able to repeat EOMI, pupils reactive, VF normal by confrontation , no face asymmetry MOtor 5/5 all ext sensation is normal MRI reviewed there is small white matter lesion Assessment- Most likley she have complex migraine, Unlikely to be stroke or MS. Plan- suggest to stop hormonal replacement therapy and take baby aspirin - Follow up outpatient Thanking you so much Everardo Allen MD
--- NOTE | 2017-09-19 11:20 | EKG ---
Test Reason : Blood Pressure : / mmHG Vent. Rate : 057 BPM Atrial Rate : 057 BPM P-R Int : 120 ms QRS Dur : 106 ms QT Int : 436 ms P-R-T Axes : 060 031 040 degrees QTc Int : 424 ms SINUS BRADYCARDIA INCOMPLETE RIGHT BUNDLE BRANCH BLOCK WHEN COMPARED WITH ECG OF 07-JUN-2017 12:14, NO SIGNIFICANT CHANGE WAS FOUND Confirmed by LOREN JANE MD ([id number]) on 09/19/2017 11:20:17 AM Referred By: Confirmed By:LOREN JANE MD
[2017-09-19] MEDS: ASPIRIN 81 MG CHEWABLE TABLETS PO SCH (12:17)
[2017-09-19] MEDS: ESTRADIOL PO SCH (12:18)
[2017-09-19] MEDS ORDERED: ATORVASTATIN CA 10 MG TABLET (FP) PO SCH (22:00)
[2017-09-19] MEDS: SODIUM CHLORIDE 1,000 ML IV SCH (23:16)
[2017-09-20 07:33] LABS: HEMATOCRIT 36.3 % (32.4-45.2); HEMOGLOBIN 11.9 GM/dL (10.7-15.3); MCH 28.4 pg (25.7-33.7); MCHC 32.7 g/dl (32.0-36.0); MEAN CELL VOLUME 86.9 fl (80-96); MEAN PLT VOLUME 9.9 fl (7.5-11.1); PLATELET COUNT 142 K/MM3 (134-434); RBC 4.18 M/mm3 (3.60-5.2); WHITE BLOOD COUNT 5.8 K/mm3 (4.0-10.0)
[2017-09-20 07:45] LABS: ALBUMIN 3.3 g/dl (3.4-5.0); ANION GAP 7 (8-16); BLOOD UREA NITROGEN 10 mg/dL (7-18); CALCIUM 8.8 mg/dL (8.5-10.1); CHLORIDE 106 mmol/L (98-107); CO2 29 mmol/L (21-32); GLUCOSE,RANDOM 81 mg/dL (74-106); SGPT/ALT 19 U/L (12-78); SODIUM 142 mmol/L (136-145)
[2017-09-20 07:48] LABS: ALK PHOS 57 U/L (45-117); BILIRUBIN,TOTAL 0.5 mg/dL (0.2-1.0); CREATININE 0.6 mg/dL (0.55-1.02); SGOT/AST 20 U/L (15-37); TOT PROT 6.5 g/dl (6.4-8.2)
[2017-09-20] MEDS: ASPIRIN 81 MG CHEWABLE TABLETS PO SCH (09:26)
[2017-09-20] MEDS: ACETAMINOPHEN 325 MG TABLET (FP) PO PRN (09:26)
[2017-09-20] MEDS: ESTRADIOL PO SCH (09:30)
--- NOTE | 2017-09-20 13:09 | PN ---
Progress Note (short form) - Note Progress Note: 41 year old female history of Hystrectomy and on Hormonal replacement therapy, she has these symptoms on left sided and which seems to be resolved. She has right frontal lobe small <1 cm lesion in white matter disease. She did also complain of headhace. Patient denies any motor weakness, speech difficulty. MRI OF BRAIN is unremarkable and carotid ultrasound is normal, she is feeling better and symptoms resolved Neurological Examination Alert oriented x 3, speech is normal, able to repeat EOMI, pupils reactive, VF normal by confrontation , no face asymmetry MOtor 5/5 all ext sensation is normal MRI reviewed there is small white matter lesion, carotid ultra sound is normal Assessment- Most likley she have complex migraine, Unlikely to be stroke or MS. Plan- stop hormonal replacement therapy - continue aspirin - From neurological point of view she can be discharged and follow up outpatient Thanking you so much Everardo Allen MD
[2017-09-20 14:00] VITALS: BP 102/57; PULSE 67; TEMP 97.9
--- NOTE | 2017-09-20 16:27 | DS ---
Physical Exam: SUBJECTIVE: Patient seen and examined OBJECTIVE: Vital Signs Period Temp Pulse Resp BP Sys/Arenas Pulse Ox Last 24 Hr 97.9 F-99.1 F 59-68 16-98 97-102/42-60 98-98 PHYSICAL EXAM GENERAL: The patient is awake, alert, and fully oriented, in no acute distress. HEAD: Normal with no signs of trauma. EYES: PERRL, extraocular movements intact, sclera anicteric, conjunctiva clear. ENT: Ears normal, nares patent, oropharynx clear without exudates, moist mucous membranes. NECK: Trachea midline, full range of motion, supple. LUNGS: Breath sounds equal, clear to auscultation bilaterally, no wheezes, no crackles, no accessory muscle use. HEART: Regular rate and rhythm, S1, S2 without murmur, rub or gallop. ABDOMEN: Soft, nontender, nondistended, normoactive bowel sounds, no guarding, no rebound, no hepatosplenomegaly, no masses. EXTREMITIES: 2+ pulses, warm, well-perfused, no edema. NEUROLOGICAL: Cranial nerves II through XII grossly intact. Normal speech, gait not observed. PSYCH: Normal mood, normal affect. SKIN: Warm, dry, normal turgor, no rashes or lesions noted. LABS Laboratory Results - last 24 hr 09/20/17 09/20/17 06:45 06:45 WBC 5.8 RBC 4.18 Hgb 11.9 Hct 36.3 MCV 86.9 MCH 28.4 MCHC 32.7 RDW 15.0 Plt Count 142 MPV 9.9 Sodium 142 Potassium 4.0 Chloride 106 Carbon Dioxide 29 Anion Gap 7 L BUN 10 Creatinine 0.6 Creat Clearance w eGFR > 60 Random Glucose 81 Calcium 8.8 Total Bilirubin 0.5 D AST 20 ALT 19 Alkaline Phosphatase 57 Total Protein 6.5 Albumin 3.3 L HOSPITAL COURSE: Date of Admission:09/19/17 Date of Discharge: 09/20/17 Minutes to complete discharge: 30 Discharge Summary Reason For Visit: URINARY TRACT INFECTION; CVA Current Active Problems Chest pain (Acute) Stroke (Acute) TIA (transient ischemic attack) (Acute) Condition: Stable - Instructions Diet, Activity, Other Instructions: You were admitted to the hospital for weakness, left arm numbness, and chest pressure. You were seen by a research technologist, Dr. Bella, and a neurologist, Dr. Allen. There were no indications that you had a heart attack or a stroke. It is recommended that you stop taking hormones and start taking baby aspirin once a day. It is also recommended that you have a stress test as an outpatient. You may resume your usual diet and activity. Please schedule appointments with your PCP, Dr. Billingsley, this week, and with the neurologist, Dr. Allen, and the research technologist, Dr. Bella, in 2 weeks. Referrals: Roberto Carlos Billingsley MD [Primary Care Provider] - 1 Week Everardo Allen MD [Staff Physician] - 2 Weeks - Home Medications Comprehensive Discharge Medication List: Ambulatory Orders Aspirin [ASA -] 81 mg PO DAILY tab.chew 09/20/17 Benzocaine/Menthol [Cepacol Sore Throat Lozenge] 1 each MM Q4H PRN #1 lozenge
== END 2017-09-20 18:09 | disposition home or self-care (01) ==
LOC: JER 12:03 → INTOOBSV 14:20 → JERBED 14:20 → UNDOADMOB 14:20 → J4W 19:13 → JERBED 19:13 → J4W 09-19 00:40
PROVIDERS: ADMIT Family Medicine; ATTEND Family Medicine
PROC: 3E03329 Introduction of Other Anti-infective into Peripheral Vein, Percutaneous Approach (ICD-10-PCS; principal; 2017-09-19)
PROC: 3E033NZ Introduction of Analgesics, Hypnotics, Sedatives into Peripheral Vein, Percutaneous Approach (ICD-10-PCS; 2017-09-19)
DX: R07.89 Other chest pain (principal); R90.82 White matter disease, unspecified; N39.0 Urinary tract infection, site not specified; Z90.710 Acquired absence of both cervix and uterus; Z90.722 Acquired absence of ovaries, bilateral
CPT/HCPCS: 36415; 70450-TC; 70551-TC; 71046-TC-FY; 71275-TC; 80053; 81003; 81015; 82465; 82550; 83718; 83721; 84443; 84478; 84484; 84703; 85025; 85027; 85610; 86850; 86900; 86901; 87086; 93005; 93010; 93306-TC; 93880-TC; 93970-TC; 99283-25; G0378; J0131; J7030

== ENCOUNTER 2018-03-12 18:44 | Emergency (ER) | payer OTHER, BC ==
[2018-03-12 18:54] VITALS: BP 122/78; PULSE 80; TEMP 98.6; BMI 20.9
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
[2018-03-12] MEDS ORDERED: IBUPROFEN 600 MG TABLET (FP) PO ONE ×2 (19:23→19:42)
[2018-03-12] MEDS ORDERED: CYCLOBENZAPRINE HCL 10 MG TABLET (FP) PO ONE (19:31)
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
[2018-03-12] MEDS ORDERED: CYCLOBENZAPRINE HCL 10 MG TABLET (FP) ONE (19:49)
--- NOTE | 2018-03-16 23:51 | EKG ---
Test Reason : Blood Pressure : / mmHG Vent. Rate : 078 BPM Atrial Rate : 078 BPM P-R Int : 116 ms QRS Dur : 104 ms QT Int : 402 ms P-R-T Axes : 068 025 052 degrees QTc Int : 458 ms NORMAL SINUS RHYTHM INCOMPLETE RIGHT BUNDLE BRANCH BLOCK BORDERLINE ECG WHEN COMPARED WITH ECG OF 19-SEP-2017 09:15, INCOMPLETE RIGHT BUNDLE BRANCH BLOCK IS NOW PRESENT Confirmed by REINA KIM MD ([id number]) on 03/16/2018 11:51:04 PM Referred By: Confirmed By:REINA KIM MD
== END 2018-03-12 20:47 | disposition home or self-care (01) ==
LOC: JERFT 18:44
DX: S13.4XXA Sprain of ligaments of cervical spine, initial encounter (principal); V43.52XA Car driver injured in collision with other type car in traffic accident, initial encounter; Y92.488 Other paved roadways as the place of occurrence of the external cause; Y93.89 Activity, other specified; Y99.8 Other external cause status
CPT/HCPCS: 72050-TC-FY; 93005; 93010; 99281-25

== ENCOUNTER 2018-06-13 17:38 | Emergency (ER) | payer BC, OTHER ==
[2018-06-13 17:44] VITALS: BP 122/59; PULSE 74; TEMP 98.5; BMI 21.3
[2018-06-13] MEDS ORDERED: LORATADINE 10 MG TABLET PO ONE (18:16)
[2018-06-13] MEDS ORDERED: PrednisoLONE 15 MG/5 ML UNIT-DOSE CUP PO STA (18:16)
[2018-06-13] MEDS ORDERED: RANITIDINE HCL 150 MG TABLET (FP) PO ONE (18:17)
[2018-06-13] MEDS ORDERED: predniSONE 20 MG TABLET (UD) PO ONE (18:32)
--- NOTE | 2018-06-13 18:32 | PDOC ---
History of Present Illness - General Chief Complaint: Sore Throat Stated Complaint: SORE THROAT/ITCHY SKIN Time Seen by Provider: 06/13/18 17:54 Exam Limitations: No Limitations - History of Present Illness Associated Symptoms: reports: denies symptoms, rash. denies: cough, fever/ chills, nausea/vomiting, shortness of breath, syncope Past History - Travel Close contact w/someone who was outside of country & ill: No - Past Medical History Allergies/Adverse Reactions: Allergies Allergy/AdvReac Type Severity Reaction Status Date / Time No Known Allergies Allergy Verified 06/13/18 17:44 Home Medications: Ambulatory Orders Diphenhydramine HCl 25 mg PO ACDIN #21 capsule 06/13/18 Famotidine [Pepcid -] 20 mg PO DAILY 10 Days #10 tablet 06/13/18 Prednisone [Deltasone] 20 mg PO ASDIR 06/13/18 Triamcinolone 0.5% Ointment [Aristocort 0.5% Ointment -] 0 gm TP BID 7 Days #60 gm 06/13/18 Anemia: No Asthma: No Cancer: No Cardiac Disorders: No CVA: No COPD: No CHF: No Dementia: No Diabetes: No GI Disorders: No Disorders: No HTN: No Hypercholesterolemia: No Liver Disease: No Seizures: No Thyroid Disease: No - Surgical History Abdominal Surgery: Yes Appendectomy: Yes - Immunization History Immunization Up to Date: Yes - Suicide/Smoking/Psychosocial Hx Smoking History: Never smoked Have you smoked in the past 12 months: Yes Number of Cigarettes Smoked Daily: 1 'Breaking Loose' booklet given: 09/18/17 Hx Alcohol Use: No Drug/Substance Use Hx: No Substance Use Type: None Hx Substance Use Treatment: No Review of Systems - Review of Systems Is the patient limited Syriac proficient: No Constitutional: No: Chills, Fever Integumentary: Yes: Erythema, Pruritus, Rash *Physical Exam - Vital Signs Last Vital Signs Temp Pulse Resp BP Pulse Ox 98.5 F 74 18 122/59 L 99 06/13/18 17:40 06/13/18 17:40 06/13/18 17:40 06/13/18 17:40 06/13/18 17:40 - Physical Exam HEENT: positive: EOMI, STU, Normal ENT Inspection, Normal Voice, Pharynx Normal Neck: positive: Supple Respiratory/Chest: positive: Lungs Clear, Normal Breath Sounds Cardiovascular: positive: Regular Rhythm, Regular Rate, S1, S2 Integumentary: positive: Erythema, Hives (b/l arms, lower back, posterior neck) Moderate Sedation - Procedure Monitoring Vital Signs: Procedure Monitoring Vital Signs Temperature 98.5 F 06/13/18 17:40 Pulse Rate 74 06/13/18 17:40 Respiratory Rate 18 06/13/18 17:40 Blood Pressure 122/59 L 06/13/18 17:40 O2 Sat by Pulse Oximetry (%) 99 06/13/18 17:40 Medical Decision Making - Medical Decision Making 42y/o F with generalized pruritus and hives after eating sushi for the first time on 06/05/18. She went to the urgent care on 06/11/18, given predispose tamper and benadryl. Pt reports it is not working. She denies any SOB or throat swelling. SHe is stil itching. exam with several raised red lines in her lower back, + dermographism noted 06/13/18 18:40 prednisone/benadryl and zantac given Alllergy follow up *DC/Admit/Observation/Transfer Diagnosis at time of Disposition: Hives - Discharge Dispostion Disposition: HOME Condition at time of disposition: Good Decision to Admit order: No - Prescriptions Prescriptions: Diphenhydramine HCl 25 mg PO ACDIN #21 capsule Famotidine [Pepcid -] 20 mg PO DAILY 10 Days #10 tablet Triamcinolone 0.5% Ointment [Aristocort 0.5% Ointment -] 0 gm TP BID 7 Days #60 gm - Referrals Referrals: Roberto Carlos Billingsley MD [Primary Care Provider] - Johnnie Evans MD [Staff Physician] - 24 hours - Patient Instructions Printed Discharge Instructions: DI for Hives Additional Instructions: Please follow up with Allergic doctor for testing. Continue predispose as previously prescribed. Return to the Emergency Department if worsening symptoms occurs. - Post Discharge Activity
[2018-06-13] MEDS ORDERED: LORATADINE 10 MG TABLET ONE (18:34)
[2018-06-13] MEDS ORDERED: predniSONE 20 MG TABLET (UD) ONE (18:34)
[2018-06-13] MEDS ORDERED: RANITIDINE HCL 150 MG TABLET (FP) ONE (18:34)
== END 2018-06-13 20:09 | disposition home or self-care (01) ==
LOC: JERFT 17:38
DX: L50.9 Urticaria, unspecified (principal)
CPT/HCPCS: 99281-25

== ENCOUNTER 2023-05-06 06:01 | Day surgery (SDC) | payer BC ==
[2023-04-30 12:03] VITALS: BMI 26.5
[2023-05-06] MEDS ORDERED: POVIDONE-IODINE 5% OPHTHALMIC PREP 30 ML SOLUTION ONE (07:16)
[2023-05-06] MEDS ORDERED: ERYTHROMYCIN 0.5% OPHTHALMIC OINTMENT 3.5 GM TUBE ONE (07:16)
[2023-05-06] MEDS ORDERED: TETRACAINE 0.5% OPHTH SOLN 2 ML BOTTLE ONE (07:16)
[2023-05-06] MEDS ORDERED: ceFAZolin SODIUM 1 GM VIAL ONE ×2 (07:16→07:24)
[2023-05-06] MEDS ORDERED: BUPIVACAINE HCL/PF 0.5% (5MG/ML) 10 ML VIAL ONE (07:17)
[2023-05-06] MEDS ORDERED: LIDOCAINE 1%/EPI 1:100000 (50 ML MULTI DOSE VIAL) ONE (07:17)
[2023-05-06] MEDS ORDERED: ONDANSETRON 4 MG/2 ML VIAL ONE ×2 (07:24→10:15)
[2023-05-06] MEDS ORDERED: DEXAMETHASONE SOD PHOSPHATE 4 MG/1 ML VIAL ONE (07:24)
[2023-05-06] MEDS ORDERED: PROPOFOL 40 ML ONE (07:24)
[2023-05-06] MEDS ORDERED: PROPOFOL 20 ML ONE ×4 (07:25→09:22)
[2023-05-06] MEDS ORDERED: MIDAZOLAM HCL 2 MG/2 ML SINGLE DOSE VIAL ONE (07:25)
[2023-05-06] MEDS ORDERED: oxyCODONE HCL 5 MG TABLET PO PRN (09:49)
[2023-05-06] MEDS ORDERED: LACTATED RINGERS SOLUTION 1,000 ML IV SCH (10:00)
[2023-05-06] MEDS ORDERED: ACETAMINOPHEN 1000 MG/100 ML BAG IVPB ONE (10:24)
[2023-05-06] MEDS ORDERED: PROMETHAZINE HCL 25 MG/1 ML VIAL IVPB PRN (10:25)
[2023-05-06] MEDS ORDERED: ONDANSETRON 4 MG/2 ML VIAL IVPUSH ONE (10:26)
[2023-05-06 10:31] VITALS: RESP 16
[2023-05-06] MEDS ORDERED: PROMETHAZINE HCL 25 MG/1 ML VIAL ONE (10:51)
[2023-05-06 12:17] VITALS: TEMP 97.9
[2023-05-06 13:03] VITALS: BP 108/56; PULSE 60
== END 2023-05-06 12:50 | disposition home or self-care (01) ==
LOC: FASU 06:01
PROVIDERS: ATTEND Ophthalmology
PROC: 08SQ0ZZ Reposition Right Lower Eyelid, Open Approach (ICD-10-PCS; principal; 2023-05-06 08:14)
DX: H04.223 Epiphora due to insufficient drainage, bilateral (principal); H04.523 Eversion of bilateral lacrimal punctum; H02.132 Senile ectropion of right lower eyelid; H02.135 Senile ectropion of left lower eyelid
CPT/HCPCS: 94760